=== PATIENT | female | born 1950 | race Caucasian/White ===

== ENCOUNTER → 2016-05-04 18:29 | Outpatient (CLI) | payer MEDICARE | END | disposition home or self-care (01) | LOC: D.LABREF 18:29 | DX: R60.0 Localized edema (principal) ==

== ENCOUNTER → 2016-07-19 20:22 | Outpatient (CLI) | payer MEDICARE | END | disposition home or self-care (01) | LOC: D.LABREF 20:22 | DX: E83.52 Hypercalcemia (principal) ==

== ENCOUNTER → 2016-10-12 15:12 | Outpatient (CLI) | payer MEDICARE | END | disposition home or self-care (01) | LOC: D.LABREF 15:12 | DX: Z13.9 Encounter for screening, unspecified (principal) ==

== ENCOUNTER 2017-08-10 10:18 | Inpatient (IN) | payer OTHER ==
[~2017-08-10] VITALS: Ht 162.6 cm; Wt 120.1 kg
--- NOTE | ~2017-08-10 | EC ---
PATIENT:ALESSANDRA GLASGOW DATE OF SERVICE: 08/10/17 SEX: F MEDICAL RECORD: [id number] DATE OF : 46 LOCATION:D.M2 D.211 AGE OF PATIENT: 67 ADMISSION DATE: 08/10/17 REFERRING PHYSICIAN: INTERPRETING PHYSICIAN: JOHANNA OCASIO MD ECHOCARDIOGRAM REPORT ECHO CHARGES 4 ECHO COMPLETE Date: 08/10 CLINICAL DIAGNOSIS: A-FIB ECHOCARDIOGRAPHIC MEASUREMENTS (adult normal given) AC root (d.<3.7cm) 2.5 cm LV Septum d (<1.2 cm> 1.4 cm Valve Excursion 1.5 cm LV Septum (systole) 2.1 cm Left Atria (s.<4.0cm> 4.7 cm LVPW d(<1.2cm) 1.3 cm RV (d.<2.3cm) 3.2 cm LVPW (sytole) 1.8 cm LV diastole(<5.6CM) 5.8 cm MV E-F(>70mm/sec) cm LV systole 4.1 cm LVOT Diameter 2.1 cm MV exc.(>10mm) cm Est.ejection fraction (50-75%) % DOPPLER: LVIT cm/sec A cm/sec E 102 cm/sec LA cm/sec RVSP mmHg LVOT 97.0 cm/sec AOP1/2T m/s Asc. Ao 158 cm/sec RVOT cm/sec RA cm/sec PA cm/sec AV Gradient Peak 10.0 mmHg AV Mean 4.6 mmHg AV Area 2.3 cm MV Gradient Peak 6.1 mmHg MV Mean 1.9 mmHg MV Area cm COMMENTS: Housing Counselor: Tate SANON EL [place] Lie Detector Operator: 1 Dr. Ocasio TAPE# PACS Pericardial Effusion N DATE OF SERVICE: 08/10/2017 FINDINGS: 1. Left ventricular chamber size is within normal limits. Left ventricular systolic function is normal. Overall ejection fraction estimated at 55%. 2. Left atrium is enlarged at 4.7 cm. Right atrium and right ventricular chamber sizes are within normal limits. 3. Valvular structures have normal structure and motion. 4. Doppler interrogation reveals no significant valvular insufficiency or stenosis. ECHOCARDIOGRAM REPORT [id number] ALESSANDRA GLASGOW 5. There is a small pericardial effusion present. This is not at all hemodynamically significant. 6. No evidence of left ventricular thrombus. TRANSINT:[id number] Voice Confirmation ID: [id number] DOCUMENT ID: [id number] JOHANNA OCASIO MD at 1848 CC: [id number] DICTATION DATE: 08/10/17 1251 ORNAMENT STITCHER: 08/10/17 1442 DIS IN 08/12/17 [facility] [address] [id number]
--- NOTE | ~2017-08-10 | CN ---
PATIENT NAME:ALESSANDRA GLASGOW MEDICAL RECORD: [id number] : 46 LOCATION:D. D.2115 ADMIT DATE: 08/10/17 ACCOUNT: [id number] CONSULTING PHYSICIAN: JOHANNA MORALES MD REFERRING PHYSICIAN: ROSS HYLTON DO DATE OF CONSULTATION: 08/10/2017 ADMITTING DIAGNOSES: 1. Atrial fibrillation, unknown duration. 2. Hypertension. HISTORY OF PRESENT ILLNESS: Ms. Glasgow presents to Dr. Hylton's office for noncardiac related care. She on auscultation was found to have an irregular heartbeat. EKG revealed she is in atrial fibrillation. She does not at all have any symptomatology, did not have any idea she was in the atrial fibrillation. She has no cardiac history. PHYSICAL EXAMINATION: GENERAL APPEARANCE: Well-nourished, well-developed, appears stated age. Level of distress, comfortable. PSYCHIATRIC: Mental status, alert, normal affect. Orientation, oriented to time, place and person. EYES: Lids and conjunctiva, noninjected. No discharge, no pallor. ENT: Lips, teeth, gums, normal dentition. Oropharynx, no cyanosis, no pallor. NECK: Carotid arteries, bilateral normal upstroke, no bruits, no thrills. JUGULAR VEINS: No jugular venous pressure or distention. CERVICAL LYMPH NODES: Nontender, nonenlarged. THYROID: Not enlarged. Nontender. No nodules. LUNGS: Respiratory effort, unlabored. CHEST: Normal curvature. No thoracic deformity. No chest wall tenderness. Percussion, resonant. Auscultation, clear. No wheezes, no rales, no rhonchi. CARDIOVASCULAR: Precordial exam, nondisplaced. No heaves or pericardial thrills. Rate and rhythm, regular. Heart sounds, normal S1, normal S2. No S3, no gallop, no rub. Systolic murmur, not heard. Diastolic murmur, not heard. EXTREMITIES: No cyanosis, no edema. Peripheral pulses, full and equal in all extremities, except as noted. No bruits appreciated. ABDOMEN: Soft, nondistended. Normal aorta. No bruit. Nontender. No masses. Liver, nontender, no hepatomegaly. Spleen, nontender, no splenomegaly. MUSCULOSKELETAL: No joint tenderness. No joint swelling. No erythema. NEUROLOGICAL: Normal gait, normal strength, normal tone. SKIN: Warm and dry. OVERALL IMPRESSION: Atrial fibrillation, unknown duration. We will start her on Xarelto as well as sotalol for rate control. Get an echocardiogram. Thyroid function studies. Further care depends upon the echo and thyroid function studies. TRANSINT:[id number] Voice Confirmation ID: [id number] DOCUMENT ID: [id number] CONSULT REPORT [id number] ALESSANDRA GLASGOW JEFFREY MD at 1848 CC: [id number] DICTATION DATE: 08/10/17 1246 ASSISTANCE SPECIALIST: 08/10/17 1445 DIS IN 08/12/17 [facility] [address] [place] [address]
[2017-08-10] MEDS ORDERED: FLUTICASONE PRO16 GM NASAL (10:44)
[2017-08-10] MEDS ORDERED: SYNTHROID88 MCG PO (10:45)
[2017-08-10] MEDS ORDERED: GLUCOPHAGE1000 MG PO (10:46)
[2017-08-10] MEDS ORDERED: LOTREL 5/20 MG1 CAP (10:47)
[2017-08-10] MEDS ORDERED: VITAMIN D250000 UNIT PO (10:48)
[2017-08-10 10:53] VITALS: BP 123/86; BMI 43.7
[2017-08-10 11:07] LABS: BASOPHILS 0.3 % (0-2); EOSINOPHILS 0.7 % (0-7); HEMATOCRIT 40.2 % (36.0-48.0); HEMOGLOBIN 12.7 g/dL (12-16); IMMATURE GRANULOCYTES 0.2 % (0-5); LYMPHOCYTES 18.2 % (15-50); MCHC 31.6 g/dL (31.0-37.0); MCV 85.5 fL (80.0-100.0); MEAN PLATELET VOLUME 9.2 fL (7.4-10.4); MONOCYTES 4.8 % (2-11); NEUTROPHILS 75.8 % (40-80); PLATELET COUNT 303 10x3/uL (130-400); RDW 15.3 % (11.5-14.5); WBC 8.7 10x3/uL (4.8-10.8)
[2017-08-10 11:30] LABS: ALBUMIN 3.6 g/dL (3.4-5.0); ANION GAP 12.4 mmol/L (8-16); BILIRUBIN - TOTAL 0.4 mg/dL (0.2-1.3); CALCIUM 10.1 mg/dL (8.5-10.1); CARBON DIOXIDE 27.4 mmol/L (21.0-32.0); CREATININE - SERUM 0.9 mg/dL (0.6-1.3); POTASSIUM - SERUM 3.8 mmol/L (3.5-5.1); PROTEIN - SERUM 7.4 g/dL (6.4-8.2)
[2017-08-10 11:36] LABS: MAGNESIUM - SERUM 1.8 mg/dL (1.8-2.4); THYROID STIMULATING HORMONE 2.41 uIU/mL (0.36-3.74)
[2017-08-10 13:25] LABS: T4 THYROXINE 13.8 ug/dL (4.7-13.3); THYROID STIMULATING HORMONE 2.38 uIU/mL (0.36-3.74)
[2017-08-10 14:29] VITALS: BP 128/86
[2017-08-10 16:21] VITALS: BP 130/80
[2017-08-10 19:00] VITALS: BP 120/71
[2017-08-11 00:22] VITALS: BP 116/65
[2017-08-11 04:00] VITALS: BP 123/66
[2017-08-11 05:30] LABS: BASOPHILS 0.3 % (0-2); EOSINOPHILS 1.7 % (0-7); HEMATOCRIT 36.5 % (36.0-48.0); HEMOGLOBIN 11.4 g/dL (12-16); IMMATURE GRANULOCYTES 0.3 % (0-5); LYMPHOCYTES 31.5 % (15-50); MCH 26.8 pg (26.0-34.0); MCHC 31.2 g/dL (31.0-37.0); MCV 85.7 fL (80.0-100.0); MEAN PLATELET VOLUME 9.6 fL (7.4-10.4); MONOCYTES 7.1 % (2-11); NEUTROPHILS 59.1 % (40-80); PLATELET COUNT 296 10x3/uL (130-400); RBC 4.26 10x6/uL (4.00-5.40); RDW 15.5 % (11.5-14.5); WBC 6.6 10x3/uL (4.8-10.8)
[2017-08-11 05:54] LABS: ALBUMIN 2.9 g/dL (3.4-5.0); ALKALINE PHOSPHATASE 55 U/L (46-116); ALT (SGPT) 37 U/L (10-68); BILIRUBIN - TOTAL 0.32 mg/dL (0.2-1.3); CALC OSMOLALITY 281 mosm/kg (275-300); CALCIUM 8.6 mg/dL (8.5-10.1); CARBON DIOXIDE 27.5 mmol/L (21.0-32.0); CHLORIDE - SERUM 103 mmol/L (98-107); CREATININE - SERUM 0.7 mg/dL (0.6-1.3); GLUCOSE 130 mg/dL (74-106); POTASSIUM - SERUM 3.5 mmol/L (3.5-5.1); PROTEIN - SERUM 6.3 g/dL (6.4-8.2); SODIUM 140 mmol/L (136-145); UREA NITROGEN 14 mg/dL (7-18); eGFR NON AFRICAN AMERICAN 88 mL/min (90-120)
[2017-08-11 08:13] VITALS: BP 136/89
[2017-08-11 10:41] VITALS: Ht 162.6 cm; Wt 120.1 kg
[2017-08-11 12:51] VITALS: BP 139/77
[2017-08-11 17:07] VITALS: BP 130/76
[2017-08-11 20:00] VITALS: BP 131/68
[2017-08-12] VITALS: BP 123/62
[2017-08-12 04:00] VITALS: BP 117/67
[2017-08-12 05:42] LABS: BASOPHILS 0.3 % (0-2); HEMATOCRIT 35.4 % (36.0-48.0); IMMATURE GRANULOCYTES 0.3 % (0-5); LYMPHOCYTES 30.8 % (15-50); MCH 26.7 pg (26.0-34.0); MCHC 31.1 g/dL (31.0-37.0); MCV 85.9 fL (80.0-100.0); MEAN PLATELET VOLUME 9.2 fL (7.4-10.4); MONOCYTES 6.2 % (2-11); NEUTROPHILS 60.4 % (40-80); PLATELET COUNT 252 10x3/uL (130-400); RBC 4.12 10x6/uL (4.00-5.40); RDW 15.4 % (11.5-14.5); WBC 6.1 10x3/uL (4.8-10.8)
[2017-08-12 06:04] LABS: ALBUMIN 2.9 g/dL (3.4-5.0); ALKALINE PHOSPHATASE 58 U/L (46-116); ALT (SGPT) 41 U/L (10-68); BILIRUBIN - TOTAL 0.22 mg/dL (0.2-1.3); CALC OSMOLALITY 282 mosm/kg (275-300); CALCIUM 8.5 mg/dL (8.5-10.1); CARBON DIOXIDE 27.5 mmol/L (21.0-32.0); CHLORIDE - SERUM 106 mmol/L (98-107); CREATININE - SERUM 0.7 mg/dL (0.6-1.3); GLUCOSE 140 mg/dL (74-106); POTASSIUM - SERUM 3.9 mmol/L (3.5-5.1); PROTEIN - SERUM 6.4 g/dL (6.4-8.2); SODIUM 141 mmol/L (136-145); UREA NITROGEN 13 mg/dL (7-18); eGFR NON AFRICAN AMERICAN 88 mL/min (90-120)
[2017-08-12 09:09] VITALS: BP 148/71
[2017-08-12 11:53] VITALS: BP 144/81
[2017-08-12] MEDS ORDERED: BETAPACE 80 MG80 MG PO (13:18)
[2017-08-12] MEDS ORDERED: XARELTO20 MG PO (13:21)
== END 2017-08-12 16:10 | disposition home or self-care (01) | DRG 310 ==
LOC: D.M2 10:18 → D.SDCHOLD 08-11 10:05 → D.M2 08-11 10:05
PROVIDERS: Family Medicine; Internal Medicine Interventional Cardiology
DX: I48.91 Unspecified atrial fibrillation (principal); Z79.01 Long term (current) use of anticoagulants; I10 Essential (primary) hypertension; E03.9 Hypothyroidism, unspecified; E11.9 Type 2 diabetes mellitus without complications

== ENCOUNTER → 2018-06-19 09:05 | Outpatient (CLI) | payer OTHER ==
[2017-08-11 10:41] VITALS: BMI 43.4
[~2018-06-19 09:05] MED LIST: BETAPACE 80 MG80 MG PO; FLUTICASONE PRO16 GM NASAL; GLUCOPHAGE1000 MG PO; LOTREL 5/20 MG1 CAP; SYNTHROID88 MCG PO; VITAMIN D250000 UNIT PO; XARELTO20 MG PO
== END | disposition home or self-care (01) ==
LOC: D.CT 09:05
PROVIDERS: ATTEND Family Medicine
DX: N93.9 Abnormal uterine and vaginal bleeding, unspecified (principal)

== ENCOUNTER 2018-07-24 06:35 | Day surgery (SDC) | payer OTHER ==
[2018-07-21 12:35] LABS: BASOPHILS 0.3 % (0-2); EOSINOPHILS 1.5 % (0-7); HEMATOCRIT 39.7 % (36.0-48.0); HEMOGLOBIN 12.6 g/dL (12-16); IMMATURE GRANULOCYTES 0.3 % (0-5); LYMPHOCYTES 25.2 % (15-50); MCHC 31.7 g/dL (31.0-37.0); MCV 81.9 fL (80.0-100.0); MEAN PLATELET VOLUME 9.2 fL (7.4-10.4); MONOCYTES 4.7 % (2-11); PLATELET COUNT 291 10x3/uL (130-400); RBC 4.85 10x6/uL (4.00-5.40); RDW 16.1 % (11.5-14.5); WBC 7.9 10x3/uL (4.8-10.8)
[2018-07-21 12:37] LABS: CALC OSMOLALITY 286 mosm/kg (275-300); CARBON DIOXIDE 31.3 mmol/L (21.0-32.0); CHLORIDE - SERUM 105 mmol/L (98-107); CREATININE - SERUM 0.8 mg/dL (0.6-1.3); GLUCOSE 119 mg/dL (74-106); SODIUM 143 mmol/L (136-145); UREA NITROGEN 15 mg/dL (7-18); eGFR NON AFRICAN AMERICAN 75 mL/min (90-120)
[~2018-07-24] VITALS: Ht 162.6 cm; Wt 121.1 kg
[~2018-07-24 06:35] MED LIST changes: +LOTREL 10-40 M1 EACH PO; +VITAMIN D5000 UNIT PO
[2018-07-24 06:59] VITALS: BP 117/44; Ht 162.6 cm; Wt 121.1 kg
[2018-07-24 08:06] LABS: APPEARANCE HAZY (CLEAR); COLOR YELLOW (YELLOW); GLUCOSE NEGATIVE (NEGATIVE); NITRITE NEGATIVE (NEGATIVE); PROTEIN 1+ mg/dL (NEGATIVE)
[2018-07-24 08:07] LABS: BILIRUBIN NEGATIVE (NEGATIVE); KETONE NEGATIVE (NEGATIVE); UROBILINOGEN NORMAL (NORMAL)
[2018-07-24 08:08] LABS: BACTERIA FEW /hpf (NONE SEEN); EPITHELIAL CELLS 0-5 /hpf (0-5); RED CELLS - URINE NONE SEEN /hpf (0-5)
--- NOTE | 2018-07-24 11:01 | NUR ---
1053 DR. ATKINS PAGED TO INQUIRE WHEN PT IS TO RESUME XARELTO.
--- NOTE | 2018-07-24 11:43 | NUR ---
[address] ATKINS BY PHONE TO CLARIFY WHEN TO RESUME XARELTO, WHICH IS TOMORROW. PT INFORMED.
--- NOTE | 2018-07-26 13:09 | OP ---
PATIENT NAME: ALESSANDRA GLASGOW MEDICAL RECORD: [id number] :46 LOCATION:D.[facility] ADMISSION DATE: SURGEON: JIM ATKINS MD DATE OF OPERATION: 07/24/2018 PREOPERATIVE DIAGNOSES: 1. Postmenopausal bleeding. 2. Cervical mass. POSTOPERATIVE DIAGNOSES: 1. Postmenopausal bleeding. 2. Cervical mass. PROCEDURE: 1. Removal of cervical mass. 2. Hysteroscopy. 3. Curettage. SURGEON: Jim Atkins MD ANESTHESIOLOGIST: Dr. King MANAGER MANAGED BACKUP SERVICES: Leoncio Jean-Baptiste. ANESTHETIC: General. FINDINGS: Uterine vault is atrophic with evidence of scarring. A polypoid mass extending beyond the external cervical os with approximately 1 to 1.5 cm with broad pedicle. Vaginal vault unremarkable. SPECIMEN REMOVED 1. Cervical mass. 2. Endometrial curettings. SPECIMEN DISPOSITION: All specimens to pathology. ESTIMATED BLOOD LOSS: Less than or equal to 75 cc. FLUIDS: 900 cc of lactated Ringer's. URINE OUTPUT: Clear and sufficient catheterization at the close of the procedure. COMPLICATIONS: None. DRAINS: None. INDICATIONS: The patient is a 68-year-old female with history of postmenopausal bleeding. The patient was found to have an IUD, which was placed in the 70s removed in the clinic. Her ultrasound shows a thickened endometrial stripe. Polypoid mass identified arising from the cervical canal on assessment in the clinic. The patient is consented for hysteroscopy, D&C and removal of cervical mass and any indicated procedures. DESCRIPTION OF PROCEDURE: After informed consent was assured, the patient was OPERATIVE REPORT [id number] ALESSANDRA GLASGOW taken to the operating room where anesthetic was obtained. The patient was placed in stirrups and prepped and draped. With operative speculum in the vagina, the cervix was visualized. The cervix was grasped with a single tooth tenaculum. The polypoid mass was grasped and with a broad base, a LEEP wire was used at 75 nicolas setting to remove the mass and pedicle. Hysteroscopy with the above findings. A #3 curette was used to obtain good cry throughout all quadrants of the uterus. Specimen sent to pathology. The pedicle and the cervix was inspected and some bleeding noted from where the polypoid mass was removed. Bovie cautery was now used to obtain hemostasis here. Sponge, lap, needle counts were correct times 2. The patient was awakened and went to recovery room in stable condition. TRANSINT:[id number] Voice Confirmation ID: [id number] DOCUMENT ID: [id number] JIM ATKINS MD at 1309 CC: [id number] DICTATION DATE: 07/24/18 1008 SCIENTIFIC SPECIALIST: 07/24/18 1103 [facility] 07/24/[address] [place] [id number] [place] [id number]
== END 2018-07-24 12:10 | disposition home or self-care (01) ==
LOC: D.OPS 06:35 → D.PAN 09:30 → D.OPS 09:30
PROVIDERS: Anesthesiology; ATTEND Obstetrics & Gynecology
DX: N95.0 Postmenopausal bleeding (principal); D39.0 Neoplasm of uncertain behavior of uterus

== ENCOUNTER 2018-08-14 05:17 | Inpatient (IN) | payer OTHER ==
[2018-08-11 14:15] LABS: BASOPHILS 0.6 % (0-2); EOSINOPHILS 1.8 % (0-7); HEMATOCRIT 38.9 % (36.0-48.0); HEMOGLOBIN 12.1 g/dL (12-16); IMMATURE GRANULOCYTES 0.4 % (0-5); LYMPHOCYTES 26.2 % (15-50); MCH 25.7 pg (26.0-34.0); MCHC 31.1 g/dL (31.0-37.0); MCV 82.6 fL (80.0-100.0); MEAN PLATELET VOLUME 9.3 fL (7.4-10.4); MONOCYTES 6.3 % (2-11); NEUTROPHILS 64.7 % (40-80); RBC 4.71 10x6/uL (4.00-5.40); RDW 15.9 % (11.5-14.5)
[2018-08-11 14:16] LABS: PLATELET COUNT 350 10x3/uL (130-400)
[2018-08-11 14:27] LABS: CALCIUM 9.4 mg/dL (8.5-10.1); CARBON DIOXIDE 27.3 mmol/L (21.0-32.0); CREATININE - SERUM 0.9 mg/dL (0.6-1.3); POTASSIUM - SERUM 4.3 mmol/L (3.5-5.1)
[~2018-08-14] VITALS: Ht 162.6 cm; Wt 120.2 kg
[2018-08-14] VITALS (26 sets, daily range): BP systolic 104–139; BP diastolic 51–75; BMI 45.6
[2018-08-14] MEDS ORDERED: VALIUM 2 MG TAB2 MG PO (06:22)
--- NOTE | 2018-08-14 10:26 | NUR ---
OPA IN AIRWAY ON ADMIT
--- NOTE | 2018-08-14 11:37 | OP ---
PATIENT NAME: ALESSANDRA GLASGOW MEDICAL RECORD: [id number] :46 [facility] DATE: SURGEON: ARVIND ATKINS MD DATE OF OPERATION: 08/14/2018 PREOPERATIVE DIAGNOSES: 1. Morbid obesity. 2. Complex hyperplasia with atypia. 3. Postmenopausal bleeding. POSTOPERATIVE DIAGNOSES: 1. Morbid obesity. 2. Complex hyperplasia with atypia. 3. Postmenopausal bleeding. 4. Pelvic adhesive disease. PROCEDURES: 1. Diagnostic laparoscopy. 2. Exploratory laparotomy. 3. Lysis of adhesions. 4. Total abdominal hysterectomy. 5. Bilateral salpingo-oophorectomy. SURGEON: Arvind Atkins MD VEGETABLE LOADER: Alen Martínez MD HORTICULTURAL AGENT: ZAID Chopra ANESTHESIOLOGIST: Dr. King. ANESTHETIC: General. FINDINGS: Uterus is unremarkable. The left tube and ovary were adhesed to the bowel. The right ovary is unremarkable. Right tube is not present. What was visualized of the rest of the pelvic anatomy is unremarkable. SPECIMENS REMOVED: Uterus with cervix and bilateral ovaries with left tube. SPECIMEN DISPOSITION: All specimens to Pathology. ESTIMATED BLOOD LOSS: Less than or equal to 100 cc. FLUIDS: 2000 cc of lactated Ringer's. URINE OUTPUT: 150 cc of clear urine. COMPLICATIONS: None. DRAINS: Mix to gravity. INDICATIONS: The patient is a 68-year-old female with a history of postmenopausal bleeding. Workup included D&C with evidence of complex hyperplasia with atypia. The patient is consented for laparoscopically assisted vaginal hysterectomy with bilateral salpingo-oophorectomy and any indicated OPERATIVE REPORT [id number] ALESSANDRA GLASGOW procedure. DESCRIPTION OF PROCEDURE: After informed consent was assured, the patient was taken to the operating room where anesthesia was obtained. The patient is in [facility] and prepped and draped. Incision was made in the umbilicus to accommodate a 5-mm trocar, which was inserted without difficulty. Accessory ports were now placed in the right and left lower quadrant. The bowel was swept free of the pelvis with the above findings. Due to the adhesive disease and the amount of soft tissue obscuring the adnexa, it was felt prudent to abandon the laparoscopically assisted vaginal hysterectomy and move forward with an abdominal approach. The patient was leveled and all trocars were removed after release of the pneumoperitoneum. An incision was made over a transverse lower abdominal scar. A Pfannenstiel skin incision was used to enter the abdomen. Bowel was packed free and the uterine cornu was grasped with Diamante clamps. The round ligament was elevated and entered on the left hand side. The bladder flap was developed from the left to the midline. Window was made in the posterior leaf of the broad ligament and 2 clamps were passed through this opening. The pedicles were mobilized with scissors and a ales-fkl-ngt stitch applied for hemostasis at the uterine ovarian ligament. Dissection continues of the connective tissue surrounding the left vascular bundle. Once this had been completed, attention was now directed to the right. The right round ligament was elevated and entered. The bladder flap was now fully developed. A window was made in the posterior leaf of the broad ligament and 2 clamps were passed through this opening. The pedicle was mobilized and a izxz-bjh-adi stitch applied at the uterine ovarian ligament for hemostasis. The connective tissue surrounding the right vascular bundle was dissected free. At the level of the internal os, the uterine arteries were clamped with a Mulu clamp and a straight clamp to prevent backbleeding. This pedicle was mobilized with scissors and a Mulu stitch applied for hemostasis. Attention was directed to the left side where a clamp was applied in like manner. This pedicle was mobilized and a Mulu stitch applied for hemostasis. Using the straight clamps, the cardinal ligaments were now serially clamped, cut and tied until the level of the uterosacral ligaments were reached. With the bladder site dissected safely from the field dissection, the Mulu clamps were used to crossclamp the top of the vagina. Israel scissors removed the uterus from its attachments to the cervix for better visualization during this process. Cervix was now removed from the vagina. All specimens passed off the field. Interrupted hthczl-ne-rgesk stitches were used to reapproximate the cuff in the midline and Mulu stitches were used at the lateral pedicles. Pelvis was irrigated, irrigant removed. Adequate hemostasis was noted. Attention was now directed to the left side where the adhesions were taken down with Metzenbaum scissors. Dense adhesions were also taken down with Bovie cautery. Once the pedicle was mobilized, the ovary and tube was elevated and a Mulu clamp was placed on the infundibulopelvic ligament. A simple stitch and nsrv-qpl-rsz stitch was applied here for hemostasis. Attention was now directed to the right side where the right ovary was elevated. Tube was not present in the adnexa. The infundibulopelvic ligament was now serially compressed, coagulated, and with a Gyrus coagulation cutter. After removal of the ovary, the site was inspected. Both right and left infundibulopelvic ligaments were hemostatic. Gelfoam was placed over the right ovarian vascular pedicle and a Gelfoam was placed across the top of the vaginal cuff. Sponge, lap, and needle counts correct times 2 as the close begins. The fascia was closed with a looped PDS in a running fashion. After securing the stitch, subcutaneous tissues were irrigated, bleeding vessels cauterized, and the skin reapproximated with shante. All port sites were closed with shante as well. Sponge, lap, and OPERATIVE REPORT [id number] ALESSANDRA GLASGOW needle counts correct times 3 at the close of this surgery. TRANSINT:[id number] Voice Confirmation ID: [id number] DOCUMENT ID: [id number] ARVIND ATKINS MD at 1137 CC: [id number] DICTATION DATE: 08/14/18 1000 BOARD OF DIRECTORS: 08/14/[address] [facility] [address] [place] [address]
--- NOTE | 2018-08-14 11:39 | NUR ---
to room 1276 via bed from . received per giovanna le rn. vs done.
--- NOTE | 2018-08-14 11:42 | NUR ---
o2 sat 89- encouraged deep breathing.
--- NOTE | 2018-08-14 11:45 | NUR ---
co some nausea. tilted to rt side. no emesis.
--- NOTE | 2018-08-14 11:46 | NUR ---
drowsy- verbal responses appro to questions. o2 at 4l/nc per anesthesia. iv in rt hand- 20g cath- up lr at 125cc/hr. noted lap incisions x3 with bandaides-cd&i. abd incision with dressing noted- cd&i. scd connected to pump.
--- NOTE | 2018-08-14 13:04 | NUR ---
TORADOL GIVEN. STATES THAT PAIN IS BETTER BUT "FEELS LIKE I NEED TO PEE ALL THE TIME"
--- NOTE | 2018-08-14 13:16 | NUR ---
BLADDER SCAN USED PER THIS NURSE AND Gurvinder MANDUJANO RN- NO URINE NOTED WITH SCANNER.
--- NOTE | 2018-08-14 13:20 | NUR ---
REFUSES LIQUIDS AT THIS TIME.
--- NOTE | 2018-08-14 13:42 | NUR ---
report of pt 02 sats and being on 4l/nc, report of urine output - new orders received.
--- NOTE | 2018-08-14 14:10 | NUR ---
LR BOLUS OF 1000CC STARTED.
--- NOTE | 2018-08-14 14:29 | NUR ---
BATTALION CHIEF DILAUDID SETUP - 0.3 MG Q6MIN PRN. PT INSTRUCTED ON USE. PT RATES HER PAIN A 1 AT THIS TIME. USED INCENTIVE DIANE. POSITION CHANGED FROM LT TO RT TILT.
--- NOTE | 2018-08-14 14:37 | NUR ---
NEW BAG LR HUNG TO COMPLETE BOLUS.
--- NOTE | 2018-08-14 15:12 | NUR ---
AWAKENED WHEN ENTERED ROOM. PT DOZING BUT AWAKENS EASILY. VERBAL REWSPONSES APPRO TO QUESTIONS. STATES THAT SHE HAS NOT USED PORTFOLIO ADMINISTRATOR AGAIN BUT IS IN HER HAND. STATES PAIN IS A 0 ON SCALE OF 0-10.
--- NOTE | 2018-08-14 15:20 | NUR ---
NOTED BLOOD ON GOWN- UNDER DRESSING AND ON CHUX. LChuck MANDUJANO TO ROOM. DR MCCARTNEY CALLED TO UNIT. PT IS AWAKE - NO CO PAIN OR DISCOMFORT. HR 60 BP 115/61. O2 SAT 95.
--- NOTE | 2018-08-14 15:27 | NUR ---
DR MCCARTNEY IN ROOM.
--- NOTE | 2018-08-14 15:35 | NUR ---
THIS RN CALLS CT TO REQUEST STAT CT NOW. INFORMED THAT CT CAN'T BE DONE UNTIL LAB RESULTS ARE IN. LAB CALLED PER THIS RN. SPOKE W/CARL. SHE REPOTS NO PHLEBO IN LAB AT THIS TIME. SHE WILL FIND TECH TO COME STAT TO [facility] RM [id number].
--- NOTE | 2018-08-14 15:40 | NUR ---
BIODIESEL PLANT OPERATIONS ENGINEER TO ROOM AT THIS TIME TO OBTAIN BLOOD SPECIMEN. THIS RN CONTACTS PT'S SON AT THIS TIME PER PT'S REQUEST TO COME BE WITH HER. MR GLASGOW STATES "TELL HER I HAVE TO TIE SOME THING SUP AND I WILL COME UP THERE." PT INFORMED AND DESIRES HER SISTER TO BE CALLED ALSO.
--- NOTE | 2018-08-14 15:43 | NUR ---
THIS RN ATTEMPTS TO CALL PT'S SISTER AT THIS TIME. LINE IS CURRENTLY BUSY. WILL CONTINUE TO ATTEMPT TO REACH PT'S SISTER.
--- NOTE | 2018-08-14 15:44 | NUR ---
PT'S SISTER REACHED PER THISR N. SISTER WILL BE ENROUTE TO L&D.
--- NOTE | 2018-08-14 15:45 | NUR ---
LAB IN ROOM -TRYING TO DRAW BLOOD FOR STAT CBC AND T AND C. DIFFICULTY FINDING VEIN. DIFFICULTY FINDING VEIN FOR 2ND IV PER Gurvinder MANDUJANO RN.
[2018-08-14 15:54] LABS: HEMOGLOBIN 11.3 g/dL (12-16); MCH 25.5 pg (26.0-34.0); MCHC 30.5 g/dL (31.0-37.0); MCV 83.5 fL (80.0-100.0); MEAN PLATELET VOLUME 9.5 fL (7.4-10.4); PLATELET COUNT 297 10x3/uL (130-400); RBC 4.43 10x6/uL (4.00-5.40); RDW 15.8 % (11.5-14.5)
--- NOTE | 2018-08-14 15:54 | NUR ---
CONT TO ATTEMPT TO FIND 2ND IV SITE.
--- NOTE | 2018-08-14 16:00 | NUR ---
vascular access nurse in room attempting to start 2nd iv line. dr young had called unit for update- returned dr johnson call.
--- NOTE | 2018-08-14 16:10 | NUR ---
vascular access nurse cannot find vein. notifed dr martinez of need for iv- states will be right here.
--- NOTE | 2018-08-14 16:10 | NUR ---
shaylee blanc swage tender in room with us for vascular access. dr martinez comes to room.
--- NOTE | 2018-08-14 16:28 | NUR ---
18g iv cath placed into rt acs per shaylee blanc crna. blood drawn for creatinine for lab and taken to lab. lab states that they have 4 units prbc setup for pt if needed already.
[2018-08-14 16:40] LABS: EOSINOPHILS 1 % (0-7); LYMPHOCYTES 7 % (15-50); NEUTROPHILS 92 % (40-80); PLATELET ESTIMATE NORMAL
--- NOTE | 2018-08-14 16:55 | NUR ---
again called ct with results of bun. states they will be here to transport pt to ct scan.
--- NOTE | 2018-08-14 17:05 | NUR ---
informed dr young that pt is going to ct scan.
--- NOTE | 2018-08-14 17:15 | NUR ---
pt to ct scan via bed.
--- NOTE | 2018-08-14 17:23 | NUR ---
vascular nurse goes for us to assist in finding iv access.
--- NOTE | 2018-08-14 17:30 | NUR ---
notified ct of return of creatinine and they states they need a bun also- notified lab.
--- NOTE | 2018-08-14 17:40 | NUR ---
RETURNS TO ROOM VIA BED.
--- NOTE | 2018-08-14 17:52 | NUR ---
phoned radiology and they states that radiologist is very busy and he will call dr young with the results.
--- NOTE | 2018-08-14 17:53 | NUR ---
report to dr young of above.
--- NOTE | 2018-08-14 18:02 | NUR ---
DR MCCARTNEY IN ROOM. TALKS WITH PT AND FAMILY.
--- NOTE | 2018-08-14 18:08 | NUR ---
LIDOCAINE USED PER DR MCCARTNEY.
--- NOTE | 2018-08-14 18:25 | NUR ---
DR MCCARTNEY FINISHES SUTURING INCISION POST SOME CLEVEL[place] REMOVED- CLEANSED WITH STERILE WATER AND DERMABOND USED. DERMABOND TP DRY THEN WILL PLACE DRESSING.
--- NOTE | 2018-08-14 19:01 | NUR ---
report to pm shift.
--- NOTE | 2018-08-14 19:30 | NUR ---
SHIFT ASSESSMENT COMPLETED, PT ALERT AND ORIENTED X4, RESPONDS APPROPRIATELY, O2 AT 4L/MIN AT 97%, ATTEMPTED TO WEAN TO 2L/MIN WITH DROP IN O2 SAT TO 92%, INCREASED UP TO 3L/MIN AND SUSTAINING O2 SAT AT 97-98%. PT TCDB, INCENTIVE SPIROMETRY UP TO 1500ML DEMONSTRATED WHILE THIS RN AT BS WITH ENCOURAGEMENT, ASSISTED WITH POSITIONING UP IN BED, PT USING CUSTOMER SERVICE ADMINISTRATOR FOR PAIN CONTROL WITHOUT DIFFICULTY, ABD DRESSING APPLIED TO TRANSVERSE ABD INCISION THAT IS CLEAN AND DRY WITHOUT EVIDENCE OF FURTHER BLEEDING, [place] X4 TO RIGHT SIDE INCISION AND DERMABOND IN PLACE TO MID AND LEFT PORTIONS. NO REDNESS, WARMTH AT SITE NOTED. BATES/PERICARE PROVIDED, BATES WITH 200ML URINE IN COLLECTION CHAMBER EMPTIED AND NOTED. PO FLUIDS ENCOURAGED, CUP OF ICE WATER PROVIDED. ICE PACK OVERLAY TO ABD INCISION IN PLACE NOW. CALL LIGHT IN EASY REACH WELL CUSTOMER SERVICE ADMINISTRATOR BUTTON. CONTINUE TO MONITOR.
--- NOTE | 2018-08-14 19:35 | NUR ---
WHILE THIS RN AT BEDSIDE PROVIDING ADDITIONAL BLANKET TO PT PER REQUEST, NOTED HR TEMPORARILY INCREASE UP TO 120-160 ML THEN RETURN TO BASELINE IN MID-60S. REVIEWED PT MEDS, PT STATES NORMALLY TAKES BETAPACE (SOTALOL) TWICE DAILY. WILL CONTACT MD FOR FURTHER ORDERS.
--- NOTE | 2018-08-14 19:40 | NUR ---
MD CONTACTED RE: RESTART OF PT HOME MEDICATIONS, ORDERS FOR BETAPACE 80 MG PO BID, STATES REST CAN BE REVIEWED BY DR ATKINS TOMORROW. RELAYED TO PT WHO STATES UNDERSTANDING AND AGREEABLE TO PLAN OF CARE AT THIS TIME.
--- NOTE | 2018-08-14 20:00 | NUR ---
PT TURNED TO RIGHT LATERAL TILT, PROPPED WITH PILLOWS, ENCOURAGED TCDB, PT DEMONSTRATES. CALL LIGHT/SUPERVISOR PUMPING STATION BUTTON WITHIN EASY REACH, PT QUESTIONS ANSWERED. CONTINUE TO MONITOR.
--- NOTE | 2018-08-14 20:22 | NUR ---
PT USING CALL LIGHT TO ASK ABOUT EQUIPMENT ALARM, NOTED SCD NOT FUNCTIONING CORRECTLY. TROUBLESHOOTING COMPLETED, SCD REAPPLIED TO B LE AND NOW FUNCTIONING. ENCOURAGED PT TCBD WHILE AWAKE, WATER OFFERED BUT REFUSED. CALL LIGHT AND CONTROL OPERATOR FLOW COAT BUTTON WITHIN EASY REACH, PT DENIES PAIN AT THIS TIME.
--- NOTE | 2018-08-14 21:51 | NUR ---
PT RATES PAIN A 1/10 ON NUMERIC PAIN SCALE, TORADOL 15MG IV AND ACETOMINOPHEN 1000MG PO GIVEN WITH SIPS WATER, PO INTAKE ENCOURAGED. SOTALOL 80MG PO TAB ALSO GIVEN UPON RECEIPT FROM PHARMACY AFTER SECOND CALL FROM THIS RN. PT DOES REPORT "MY HEART WAS FLUTTERING A FEW MINUTES AGO BUT IT HAS STOPPED NOW." HR 72 AND REGULAR AT THIS TIME. URINE OUTPUT AT 250ML FOR PAST TWO HOURS. NO ABD BLEEDING NOTED, RESP EVEN AND UNLABORED. CALL LIGHT IN EASY REACH, DIVISION CHIEF BUTTON IN RIGHT HAND. NO DISTRESS NOTED AT THIS TIME. CONTINUE TO MONITOR.
--- NOTE | 2018-08-14 22:58 | NUR ---
ROUNDS COMPLETED, PT ROUSES ON RN ENTRY TO ROOM, RESP EVEN AND UNLABORED, DENIES FURTHER PALPITATIONS ON INQUIRY, SCDS IN PLACE B LE, DENIES C/O PAIN. REPOSITIONED TO PT BACK PER PT REQUEST. TCDB ENCOURAGED, INCENTIVE SPIROMETRY UP TO 1250ML WITH ENCOURAGEMENT. CONTINUE TO MONITOR.
--- NOTE | 2018-08-15 00:44 | NUR ---
ROUNDS COMPLETED, PT RESP EVEN AND UNLABORED, COLOR PINK, SKIN WARM AND DRY, IVF OF LR INFUSING AT 150ML/HR TO RIGHT HAND WITHOUT DIFFICULTY, SITE BENIGN TO INSPECTION, BATES TO GRAVITY DRAINAGE WITH 200ML NOTED IN COLLECTION CHAMBER. CONTINUE TO MONITOR.
--- NOTE | 2018-08-15 01:28 | NUR ---
ROUNDS COMPLETED. IVF-1000ML BAG LACTATED RINGERS HUNG AND INFUSING TO RIGHT HAND PIV AT 150 ML/HR. TCDB COMPLETED, INCENTIVE SPIROMETRY UP TO 1250ML WITH ENCOURAGEMENT, SIPS WATER PROVIDED, CALL LIGHT AND DIVISION SUPERINTENDENT DEVICE BUTTON WITHIN EASY REACH. CONTINUE TO MONITOR.
--- NOTE | 2018-08-15 02:28 | NUR ---
ICE PACK OVERLAY REPLACED, CUP OF ICE WATER PROVIDED, PT ANXIOUS, EMOTIONAL SUPPORT PROVIDED, QUESTIONS ANSWERED, REVIEWED PLAN OF CARE AND RATIONALE. O2 SAT AT 96-97% ON 2L/MIN PER NC. CONTINUE TO MONITOR.
--- NOTE | 2018-08-15 04:28 | NUR ---
SCHEDULED ACETOMINOPHEN 1000MG PO AND TORADOL 15MG IVP GIVEN PER MD ORDERS, PT C/O PAIN 1/10 ON NUMERIC PAIN SCALE. ATTEMPTED TO LOWER O2 TO 1L/MIN PER NC FROM 2L/MIN WITH DROP IN O2 SAT FROM 96-98% TO 93%, O2 AT 2L/MIN PER NC AT THIS TIME. VSS, AFEBRILE, REPOSITIONED PT TO LEFT TILT/LATERAL POSITION, PROPPED WITH PILLOWS. ABD DRESSING TO LOW TRANSVERSE INCISION REMAINS CDI AT THIS TIME. NAD NOTED. CALL LIGHT AND MOTOR COACH TOUR OPERATOR BUTTON WITHIN EASY REACH OF PT. CONTINUE TO MONITOR.
[2018-08-15 04:32] VITALS: BP 127/61
--- NOTE | 2018-08-15 06:10 | NUR ---
PT ROUNDS COMPLETED, PT TALKATIVE. REVIEWED PLAN OF CARE. BATES EMPTIED. CALL LIGHT IN EASY REACH, NAD NOTED. CONTINUE TO MONITOR.
--- NOTE | 2018-08-15 06:25 | NUR ---
DR ATKINS PHONES UNIT; PT STATUS UPDATE PROVIDED, NO NEW ORDERS RECEIVED AT THIS TIME, STATES WILL ROUND ON PT THIS AM.
[2018-08-15 07:24] VITALS: BP 121/59
--- NOTE | 2018-08-15 07:38 | NUR ---
ASSESSMENT DONE- PT AWAKE AND TALKING. VERBAL RESPONSES APPRO TO QUESTIONS. NO REQUESTS AT THIS TIME. ABD DRESSING CD&I. CLEAR LIQ DIET SERVED.
--- NOTE | 2018-08-15 07:44 | NUR ---
DR ATKINS IN ROOM TALKING WITH PT.
--- NOTE | 2018-08-15 09:10 | NUR ---
O2 DECREASED TO 1L/NC. O2 SAT 95 TO 99%
--- NOTE | 2018-08-15 09:13 | NUR ---
noted area of blood under abd dressing about 1 1/2" long. notified dr kimbrough- orders received to normalize pt but to keep dressing on for 24 hours.
--- NOTE | 2018-08-15 09:29 | NUR ---
iv changed to saline lock- both iv lines flushed with ns.
[2018-08-15 09:44] VITALS: BMI 45.5
--- NOTE | 2018-08-15 10:31 | NUR ---
rings call light- states feels like something is leaking between her legs. nothing visualized. pad placed. place on abd dressing has not increased in size.
[2018-08-15 11:25] VITALS: BP 122/66
--- NOTE | 2018-08-15 11:33 | NUR ---
BATES CATH REMOVED POST BULB DEFLATED WITHOUT INCIDENT. 900CC URINE IN CONTAINER. PT INSTRUCTED TO CALL NURSE WHEN NEEDS TO GET UP.
--- NOTE | 2018-08-15 13:23 | NUR ---
PT STATES HAS BEEN PASSING FLATUS. EATING REG DIET AT THIS TIME. DENIES WANTING PAIN MEDICATION.
--- NOTE | 2018-08-15 13:40 | NUR ---
pt to sitting on side of bed- states does not feel like needs to void yet. ambulated to bathroom. sponge bath done. linens changed. noted larger area of bleeding under abd dressing- not coming out of dressing though. returned to bed.
[2018-08-15 13:56] VITALS: BP 115/55
--- NOTE | 2018-08-15 14:05 | NUR ---
voided 50cc.
--- NOTE | 2018-08-15 14:08 | NUR ---
o2 sat 97 with o2 off at this time.
--- NOTE | 2018-08-15 15:33 | NUR ---
dr kimbrough in room to see pt- check dressing.
--- NOTE | 2018-08-15 16:18 | NUR ---
up to bathroom to void- walking well. voided 100cc urine.
--- NOTE | 2018-08-15 16:30 | NUR ---
pressure dressing applied.
--- NOTE | 2018-08-15 16:37 | NUR ---
bladder scan done- 0 urine reported.
--- NOTE | 2018-08-15 18:23 | NUR ---
up to bathroom- voided 150cc. ambulated in hallway- tolerated well. passing flatus.
[2018-08-15 19:30] VITALS: BP 112/56
--- NOTE | 2018-08-15 19:30 | NUR ---
SHIFT ASSESSMENT COMPLETED. PT AAOX4, TALKATIVE, RESP EVEN AND UNLABORED, COLOR WNL, SKIN WARM AND DRY, LUNGS CTAB, HEART RRR NO MURMURS, PALPITATIONS PER AUSCULTATION, ABD SOFT AND NONTENDER, REPORTS FLATUS, PRESSURE DRESSING NOTED TO LOW TRANSVERSE INCISION WITHOUT VISIBLE DRAINAGE, SURROUNDING ERYTHEMA, OR PAIN. PAIN RATED ZERO AT THIS TIME. MACIEL FREELY, AMBULATORY TO BR, ASSISTED WITH VOID PROVIDED, REPOSITIONED PT IN BED, SCDS APPLIED TO B LE AND FUNCTIONING APPROPRIATELY. VSS, AFEBRILE. BED IN LOW POSITION, CUP OF ICE WATER PROVIDED PER REQUEST. REVIEWED PLAN OF CARE THIS PM, QUESTIONS ANSWERED, PERSONAL ITEMS WITHIN EASY REACH OF PT, BED IN LOW POSITION, CALL LIGHT IN EASY REACH. CONTINUE TO MONITOR.
--- NOTE | 2018-08-15 20:05 | NUR ---
ROUNDS COMPLETED. HS SNACK TRAY PROVIDED. PT AOX4, DENIES NEEDS OR CONCERNS. CONTINUE TO MONITOR.
--- NOTE | 2018-08-15 21:01 | NUR ---
SCHEDULED MEDS PROVIDED PER MD ORDERS. ASSISTED PT OOB TO BR, VOIDS WITHOUT DIFFICULTY, CUP OF ICE WATER PROVIDED, ASSISTED BACK TO BED, POSITIONED TO COMFORT, SIDE RAILS UP X2, BED IN LOW POSITION, BED BRAKES LOCKED. NAD NOTED. CONTINUE TO MONITOR.
[2018-08-15 22:54] VITALS: BP 121/58
--- NOTE | 2018-08-15 22:54 | NUR ---
SCHEDULED MEDS PROVIDED PER MD ORDERS. PT RESTING WITH EYES CLOSED ON ENTRY TO ROOM, ROUSES TO VERBAL STIMULATION, RESP EVEN AND UNLABORED, DENIES PAIN. VSS. AFEBRILE. CALL LIGHT WITHIN EASY REACH, CONTINUE TO MONITOR.
--- NOTE | 2018-08-15 23:30 | NUR ---
CUP OF ICE WATER PROVIDED, RESP EVEN AND UNLABORED, PT TALKATIVE AND PLEASANT, NAD NOTED, NO COMPLAINTS/CONCERNS/NEEDS VOICED AT THIS TIME. CONTINUE TO MONITOR.
--- NOTE | 2018-08-16 01:10 | NUR ---
ROUNDS COMPLETED, PT RESTING WITH HOB ELEVATED AT 45 DEGREES, EYES CLOSED, RESP EVEN AND UNLABORED, CALL LIGHT WITHIN EASY REACH, SCD TO B LE IN PLACE AND FUNCTIONING, NAD NOTED. CONTINUE TO MONITOR.
--- NOTE | 2018-08-16 02:49 | NUR ---
PT ASSISTED OOB TO BR PER PT REQUEST VIA CALL LIGHT. VOIDS WITHOUT DIFFICULTY, MINIMAL ASSISTANCE PROVIDED WITH MESH PANTIES. NO VAGINAL BLEEDING NOTED. LOW ABD PRESSURE DRESSING CDI TO LOW ABDOMEN. ASSISTED PT BACK TO BED AND POSITIONED TO COMFORT. CALL LIGHT IN EASY REACH, PO FLUIDS ENCOURAGED AND PT TOLERATING WELL. CONTINUE TO MONITOR.
--- NOTE | 2018-08-16 02:59 | NUR ---
AFTER ASSISTING PT BACK TO BED, SAW THAT MESH PANTIES HAD BRIGHT RED BLOOD ON THEM. NOTED THEN THAT THE MID PORTION OF THE FOAM TAPE PRESSURE DRESSING TO ABD WAS LOOSENED AND A SATURATED 4X4 PROLAPSING FROM DRESSING. REMOVED DRESSING, REMOVED DIRTY 4X4, NOTED THAT ROUGHLY MID THIRD OF INCISION DEHISCENCE NOTED, NO ACTIVE BLEEDING NOTED. USING ASEPTIC TECHNIQUE APPLIED STERILE 4X4 TO INCISION AND FOAM TAPE DRESSING REAPPLIED TO SITE. PT TOLERATES PROCEDURE. ASKED PT NOT TO GET OOB FOR NOW, WILL CONTACT MD FOR REPORT AND ANY ORDERS. CALL LIGHT IN EASY REACH.
--- NOTE | 2018-08-16 03:03 | NUR ---
DR ATKINS PHONED WITH REPORT OF WOUND DEHISCENCE AND ACTIONS TAKEN. STATES WILL COME IN AM TO MANAGE AND CONTINUE PLAN OF CARE FOR NOW. RELAYED THIS INFORMATION TO PT, QUESTIONS ANSWERED. CALL LIGHT IN EASY REACH. PT STATES UNDERSTANDING. CONTINUE TO MONITOR.
[2018-08-16 03:21] VITALS: BP 112/67
--- NOTE | 2018-08-16 04:37 | NUR ---
PT ROUNDS COMPLETED, SCHEDULED TYLENOL GIVEN TO PT WITH SIPS WATER. CHECKED ABD DRESSING AND NOTED, FOAM DRESSING TAPE REMAINS INTACT TO LOW ABD WITHOUT ANY VISIBLE DRAINAGE NOTED AT THIS TIME. DISCUSSED NEED TO USE BEDPAN FOR VOIDING UNTIL MD EVALUATES. PT STATES UNDERSTANDING AND DOES NOT NEED TO VOID AT THIS TIME. WILL MONITOR. CALL LIGHT IN EASY REACH.
--- NOTE | 2018-08-16 06:30 | NUR ---
PT TO BEDPAN, VOIDED, PERICARE PROVIDED. REPOSITIONED IN BED, NO FURTHER ABD BLEEDING/DRAINAGE NOTED TO FOAM DRESSING. CALL LIGHT IN EASY REACH.
--- NOTE | 2018-08-16 07:12 | NUR ---
REPORT GIVEN TO ONCOMING SHIFT PROVIDED.
--- NOTE | 2018-08-16 07:30 | NUR ---
THIS RN TO BEDSIDE FOR INTRODUCTIONS. PT AA&O X 4. NO C/O PAIN. DENIES NEEDS AT PRESENT. PT CURRENTLY CONSUMING HER BREAKFAST. POC FOR THE DAY DISCUSSED. PT VERBALZIES UNDERSTANDING AND AGREEABLE.
--- NOTE | 2018-08-16 08:00 | NUR ---
pt rings call light requesting to use the bedpan.this rn to bedside. bedpan placed for pt's use. curtain pulled. pt to call when she has voided.
--- NOTE | 2018-08-16 08:15 | NUR ---
pt rings call light. this rn to bedside. pt able to void approx 100ml. pericare done. pt repositions self up in bed. currently denies pain. pt has consumed 100% of breakfast tray. before leaving room, pt assisted w/repositioning for comfort.
[2018-08-16 08:16] VITALS: BP 132/62
--- NOTE | 2018-08-16 09:15 | NUR ---
PT RINGS CALL LIGHT REQUESTING BEDPAN. THIS RN TO ROOM TO PLACE PT ON BEDPAN. PT TO RING CALLLIGHT WHEN SHE HAS FINISHED.
--- NOTE | 2018-08-16 09:21 | NUR ---
PT RINGS CALL LIGHT. THIS RN TO BEDSIDE. PT ABLE TO VOID APPROX 100ML URINE. PERICARE DONE. PT DENIES FURTHER NEEDS.
--- NOTE | 2018-08-16 10:30 | NUR ---
THIS RN TO BEDSIDE TO ADMINISTER SCHEDULED TYLENOL. ONCE SCANNED, REPORT SHOWS THAT DOSE WOULD EXCEED RECOMMENDED DOSE. PT CURRENTLY DENIES PAIN AT PRESENT. DOSE HELD. WHILE AT BEDSIDE, PT REQUEST BEDPAN AGAIN. BEDPAN PROVIDED. PT TO RING WHEN SHE IS DONE. CALL LIGHT AT PT'S SIDE.
--- NOTE | 2018-08-16 11:30 | NUR ---
ROUNDS MADE. PT LYING AWAKE IN BED IN SUPINE POSITION. DENIES PAIN OR NEEDS AT THIS TIME. BED LOW, SIDE RAILS UP X 2. CALL LIGHT AND PHONE AT PT'S SIDE.
--- NOTE | 2018-08-16 11:38 | NUR ---
PT RINGS CALL LIGHT. THIS RN TO BEDSIDE. PT ABLE TO VOID APPROX 100ML. PERICARE DONE. CLEAN PINK PAD AND CHUX PLACED. PT DENIES FURTHER NEEDS. FRESH ICE WATER SERVED IN [facility].
[2018-08-16 12:00] VITALS: BP 120/74
--- NOTE | 2018-08-16 12:11 | NUR ---
PT ON BEDPAN. VOIDS 150 ML OF CLEAR, YELLOW URINE. PERICARE DONE. PT GARLAND WELL.
--- NOTE | 2018-08-16 12:12 | MORECARE ---
CASE MANAGEMENT DISCHARGE SUMMARY PATIENT: ALESSANDRA GLASGOW SHAYNE UNIT: [id number] ADM DATE: 08/16/18 AGE: 68 : 48 SEX: F ROOM/BED: D.[facility]6 AUTHOR: LAURI SHAH PHYSICIAN: REFERRING PHYSICIAN: ARVIND ATKINS MD DATE OF SERVICE: 08/16/18 Discharge Plan Patient Name: ALESSANDRA GLASGOW Facility: [facility]:[place] : 1950 Planned Disposition: Anticipated Discharge Date: 08/17/18 Discharge Date: Expected LOS: 1 Initial Reviewer: [id number] Initial Review Date: 08/16/2018 Generated: 08/16/18 1:11 pm Comments DCP- Discharge Planning Updated by [email or web address]: Dior Torres on 08/16/18 11:[address] Patient Name: ALESSANDRA GLASGOW Admission Status: Elective Accout number: [id number] Admission Date: 08-16-2018 : 1950 Admission Diagnosis: Attending: Arvind Atkins Current LOS: 1 Anticipated DC Date: 08-17-2018 Planned Disposition: Primary Insurance: NOVASYCR Discharge Planning Comments: CM MET WITH PATIENT ABOUT DC PLANNING/NEEDS. STATES WILL NEED HOME HEALTH FOR DRESSING CHANGES AND NURSING. SETH SIGNED FOR [facility]. CM WILL CHECK WITH PHARMACY AND SEE IF LOVENOX IS COVERED. CM WILL FOLLOW AND ASSIST NEEDED. Roller Checker: Dior Torres Patient Name: ALESSANDRA GLASGOW Page [phone] at 1212 All edits/amendments must be made on the electronic document DICTATION DATE: 08/16/[address]: JODIE 08/16/18 1211 RPT#: [id number] DC DATE: STATUS: ADM IN [facility] [address] [place] [address] END OF REPORT
--- NOTE | 2018-08-16 13:45 | NUR ---
wound nurse at bedside at this time.
--- NOTE | 2018-08-16 13:46 | NUR ---
BED ASSIGNMENT RECEIVED. THIS RN TO BEDSIDE TO INFORM PT THAT SHE IS GOING TO BE TRANSFERED TO ROOM 2205. PT VERBALIZES UNDERSTANDING AND AGREEBLE. PT UP OOB TO BR TO VOID. PT ABLE TO VOID AT THIS TIME. PERICARE DONE. PT AMBULATES TO W/C FOR TRANSFER TO MED-SURG. TIME LAPSE IS APPROX 20 MINS.
--- NOTE | 2018-08-16 13:56 | NUR ---
Pt had surgery on 08/14/18 and has an incision on lower abdomen. Kacy are intact on both ends of incision and it is open in the center 7cm. The depth of the open site is 5cm. After removing packing and cleansing skin the wound was packed with one (1) 4x4 unfolded and moistened with saline. It was then covered with dry 4x4s and secured with tape. There was a small amount of bleeding when old packing was removed. There is no odor. Wound care will continue monitoring.
--- NOTE | 2018-08-16 14:20 | NUR ---
AFTER REPORT CALLED TO MOIRA LORENZO, PT TRANSFERED VIA W/C TO ROOM 2205. CHRISTOPHER FONSECA RN IN ROOM TO RECEIVE PT AT THIS TIME.
--- NOTE | 2018-08-16 14:27 | NUR ---
RECEIVED TO ROOM 2205 VIA . A/O X3. DRESSING TO LOWER ABDOMEN DRY AND INTACT. DENIES NEEDS. NO C/O PAIN.
--- NOTE | 2018-08-16 14:30 | NUR ---
PHARMACY CALLED PER THIS RN. SPOKE WITH MIGDALIA. REQUEST MADE THAT PT'S HEART MEDICATION PLEASE BE IN THE MED SURG PYXIS FOR THE 2100 DOSE. MIGDALIA ENSURES THIS RN THAT MED WILL BE AVAILABLE.
--- NOTE | 2018-08-16 15:21 | MORECARE ---
CASE MANAGEMENT DISCHARGE SUMMARY PATIENT: ALESSANDRA GLASGOW SHAYNE UNIT: [id number] ADM DATE: 08/16/18 AGE: 68 : 48 SEX: F ROOM/BED: D.2205 AUTHOR: PABLO,DOC PHYSICIAN: REFERRING PHYSICIAN: ARVIND ATKINS MD DATE OF SERVICE: 08/16/18 Discharge Plan Patient Name: ALESSANDRA GLASGOW Facility: [facility]:[place] : 1950 Planned Disposition: Anticipated Discharge Date: 08/17/18 Discharge Date: Expected LOS: 1 Initial Reviewer: [id number] Initial Review Date: 08/16/2018 Generated: 08/16/18 4:21 pm Comments DCP- Discharge Planning Updated by [email or web address]: Dior Torres on 08/16/18 2:[address] Patient Name: ALESSANDRA GLASGOW Admission Status: Elective Accout number: [id number] Admission Date: 08-16-2018 : 1950 Admission Diagnosis: Attending: Arvind Atkins Current LOS: 1 Anticipated DC Date: 08-17-2018 Planned Disposition: Primary Insurance: [employer]rock[employer] Discharge Planning Comments: CM MET WITH PATIENT ABOUT DC PLANNING/NEEDS. STATES WILL NEED HOME HEALTH FOR DRESSING CHANGES AND NURSING. SETH SIGNED FOR [facility] OR [facility]. CM WILL CHECK WITH PHARMACY AND SEE IF LOVENOX IS COVERED. CM WILL FOLLOW AND ASSIST NEEDED. Marklogic Developer: Dior Torres Appended by Dior Torres on 08/16/2018 15:18 CDT: CM CALLED PHARMACY AND THEY WOULDN'T GIVE ME A ZUNIGA FOR THE MEDICINE WITHOUT A PRESCRIPTION. I PRINTED OFF COUPON FROM [facility] TO HELP WITH MEDICINE IF ANY OUT OF POCKET. External Providers [facility] Next Contact Date: Service Request Date: Service Type: Resolution: Reviewer: Comments: Coverage Notice Reviewer: [id number] - Dior Torres Notice Issued Date-Time: 08/16/2018 15:18 Notice Type: Patient Choice Letter Notice Delivered To: Patient Relationship to Patient: Supportive Employment Case Manager Name: Delivery Method: HAND - Hand Delivered Jackie Days: Prior Verbal Notification: Recipient Understood Notice: Yes Recipient Signature: Yes Med Rec Note Co-signed by Attending: Coverage Notice Comment: SETH FOR [facility], CARE IV. Last DP export: 08/16/18 11:11 a Patient Name: ALESSANDRA GLASGOW Page [phone] at 1521 All edits/amendments must be made on the electronic document DICTATION DATE: 08/16/18 152 JUNIOR ENGINEER: JODIE 08/16/18 152 RPT#: [id number] DC DATE: STATUS: ADM IN [facility] [address] [place] [address] END OF REPORT
--- NOTE | 2018-08-16 15:31 | MORECARE ---
CASE MANAGEMENT DISCHARGE SUMMARY PATIENT: ALESSANDRA GLASGOW SHAYNE UNIT: [id number] ADM DATE: 08/16/18 AGE: 68 : 48 SEX: F ROOM/BED: D.2205 AUTHOR: PABLO,DOC PHYSICIAN: REFERRING PHYSICIAN: ARVIND ATKINS MD DATE OF SERVICE: 08/16/18 Discharge Plan Patient Name: ALESSANDRA GLASGOW Facility: [facility]:[place] : 1950 Planned Disposition: Anticipated Discharge Date: 08/17/18 Discharge Date: Expected LOS: 1 Initial Reviewer: [id number] Initial Review Date: 08/16/2018 Generated: 08/16/18 4:31 pm Comments DCP- Discharge Planning Updated by [id number]: Dior Torres on 08/16/18 2:[address] Patient Name: ALESSANDRA GLASGOW Admission Status: Elective Accout number: [id number] Admission Date: 08-16-2018 : 1950 Admission Diagnosis: Attending: Arvind Atkins Current LOS: 1 Anticipated DC Date: 08-17-2018 Planned Disposition: Primary Insurance: NOVASYSMCR Discharge Planning Comments: CM MET WITH PATIENT ABOUT DC PLANNING/NEEDS. STATES WILL NEED HOME HEALTH FOR DRESSING CHANGES AND NURSING. SETH SIGNED FOR [facility]. CM WILL CHECK WITH PHARMACY AND SEE IF LOVENOX IS COVERED. CM WILL FOLLOW AND ASSIST NEEDED. Mail Deliverer: Dior Torres Appended by Dior Torres on 08/16/2018 15:18 CDT: CM CALLED PHARMACY AND THEY WOULDN'T GIVE ME A ZUNIGA FOR THE MEDICINE WITHOUT A PRESCRIPTION. I PRINTED OFF COUPON FROM [facility] TO HELP WITH MEDICINE IF ANY OUT OF POCKET. Appended by Dior Torres on 08/16/2018 15:26 CDT: DOCUMENTS FAXED TO [facility] INFO AND COUPON GIVEN TO PATIENT TO HELP WITH LOVENOX IF INSURANCE DOESN'T COVER. Coverage Notice Reviewer: [id number] - Dior Torres Notice Issued Date-Time: 08/16/2018 15:18 Notice Type: Patient Choice Letter Notice Delivered To: Patient Relationship to Patient: Chef Teacher Name: Delivery Method: HAND - Hand Delivered Jackie Days: Prior Verbal Notification: Recipient Understood Notice: Yes Recipient Signature: Yes Med Rec Note Co-signed by Attending: Coverage Notice Comment: SETH FOR [facility], CARE IV. Last DP export: 08/16/18 2:21 p Patient Name: ALESSANDRA GLASGOW Page [phone] at 1531 All edits/amendments must be made on the electronic document DICTATION DATE: 08/16/181529 ATTENDING UROLOGIST: JODIE 08/16/181529 RPT#: [id number] DC DATE: STATUS: ADM IN [facility] [address] [place] [address] END OF REPORT
--- NOTE | 2018-08-16 16:21 | NUR ---
UP TO BR WITH ONE PERSON MIN ASSIST. VOIDED WITHOUT DIFFICULTY. AMBULATED 100 FEET IN HALLWAY WITH SBA. DID WELL WITH ACTIVITY. NO INCREASED PAIN.
[2018-08-16 16:44] VITALS: BP 136/55
--- NOTE | 2018-08-16 18:05 | NUR ---
UP TO BR WITH ONE PERSON MIN ASSIST. VOIDED WITHOUT DIFFICULTY. SUPPER SERVED IN ROOM PATIENT STATED SHE WAS HUNGRY. DRESSING TO ABDOMEN REENFORCED. NO CHANGES NOTED. DENIES NEEDS.
--- NOTE | 2018-08-16 19:40 | NUR ---
PT SITTING UP IN BED, NO SIGNS OF DISTRESS. ALERT AND ORIENTED. USING PILLOW TO SPLINT ABD WHEN COUGHING. DRESSING TO LOWER MID ABD CDI, 3 LAP SITES WITH BANDAIDS CDI. SCDS IN PLACE. DENIES PAIN AT THIS TIME. CL IN REACH, WILL CONT TO MONITOR
[2018-08-16 20:00] VITALS: BP 138/67
--- NOTE | 2018-08-16 21:00 | NUR ---
ASSISTED PT UP TO BATHROOM WITH MINIMAL ASSIST. PT STATES SHE ONLY HAS PAIN WHEN FIRST TRYING TO GET OUT OF BED AND THEN TRYING TO GET BACK IN BED, STATES NO PAIN OTHERWISE. NO VAGINAL BLEEDING. DRESSING CDI. SCDS PLACED BACK ON PT. PT REFUSED TYLENOL STATING SHE WAS NOT HAVING PAIN. CL IN REACH, WILL CONT TO MONITOR
[2018-08-17 00:51] VITALS: BP 127/61
[2018-08-17 04:00] VITALS: BP 127/61
--- NOTE | 2018-08-17 04:15 | NUR ---
PT UP TO BATHROOM WITH MINIMAL ASSIST. STATES NO PAIN EXCEPT WHEN FIRST EXTING BED. DRESSING TO ABD CDI. ASSISTED BACK INTO BED AFTER VOIDING. SCDS IN PLACE. CL IN REACH, WILL CONT TO MONITOR
--- NOTE | 2018-08-17 07:30 | NUR ---
UP TO BR WITH ONE PERSON MIN ASSIST. VOIDED CLEAR YELLOW URINE WITHOUT DIFFICULTY.
--- NOTE | 2018-08-17 07:52 | NUR ---
AWAKE AND ALERT. ORIENTED X3. NO C/O AT THIS TIME. LUNGS ARE CLEAR BILATERALLY, NO COUGH NOTED. SKIN IS INTACT WITHOUT REDNESS EXCEPT INCISION TO LOWER ABDOMEN WHICH HAS A DRY INTACT DRESSING IN PLACE. 3 INSERTION SITES NOTED TO ABDOMEN WELL. SL TO RIGHT HAND AND RIGHT AC ARE PATENT WITHOUT REDNESS AT INSERTION SITE. DENIES NEEDS.
[2018-08-17 09:39] VITALS: BP 152/75
[2018-08-17 09:58] VITALS: Ht 162.6 cm; Wt 120.2 kg
--- NOTE | 2018-08-17 10:00 | NUR ---
PATIENT HAVING URGENCY WITH MULTIPLE TRIPS TO BR THIS AM. WILL GET UA TO CHECK FOR UTI.
--- NOTE | 2018-08-17 10:53 | NUR ---
URINE SENT TO LAB FOR UA.
[2018-08-17 11:25] LABS: APPEARANCE CLEAR (CLEAR); BACTERIA FEW /hpf (NONE SEEN); BILIRUBIN NEGATIVE (NEGATIVE); COLOR YELLOW (YELLOW); EPITHELIAL CELLS 0-5 /hpf (0-5); GLUCOSE NEGATIVE (NEGATIVE); KETONE NEGATIVE (NEGATIVE); NITRITE NEGATIVE (NEGATIVE); PROTEIN NEGATIVE (NEGATIVE); RED CELLS - URINE 0-5 /hpf (0-5); SPECIFIC GRAVITY 1.005 (1.005-1.020); UROBILINOGEN NORMAL (NORMAL); WHITE CELLS - URINE OCC /hpf (0-5)
[2018-08-17 13:08] VITALS: BP 194/76
[2018-08-17] MEDS ORDERED: PERCOCET 7.5/321 TAB PO (14:40)
[2018-08-17] MEDS ORDERED: MOBIC7.5 MG PO (14:42)
[2018-08-17] MEDS ORDERED: MACROBID100 MG PO (14:43)
--- NOTE | 2018-08-17 16:18 | MORECARE ---
CASE MANAGEMENT DISCHARGE SUMMARY PATIENT: ALESSANDRA GLASGOW SHAYNE UNIT: [id number] ADM DATE: 08/16/18 AGE: 68 : 48 SEX: F ROOM/BED: D.2205 AUTHOR: PABLO,DOC PHYSICIAN: REFERRING PHYSICIAN: ARVIND ATKINS MD DATE OF SERVICE: 08/17/18 Discharge Plan Patient Name: ALESSANDRA GLASGOW Facility: [facility]:[place] : 1950 Planned Disposition: Anticipated Discharge Date: 08/17/18 Discharge Date: Expected LOS: 1 Initial Reviewer: [id number] Initial Review Date: 08/16/2018 Generated: 08/17/18 5:18 pm DCP- Discharge Planning Updated by [id number]: Dior Torres on 08/16/18 2:[address] Patient Name: ALESSANDRA GLASGOW Admission Status: Elective Accout number: [id number] Admission Date: 08-16-2018 : 1950 Admission Diagnosis: Attending: Arvind Atkins Current LOS: 1 Anticipated DC Date: 08-17-2018 Planned Disposition: Primary Insurance: NOVASYProteoMediXCR Discharge Planning Comments: CM MET WITH PATIENT ABOUT DC PLANNING/NEEDS. STATES WILL NEED HOME HEALTH FOR DRESSING CHANGES AND NURSING. SETH SIGNED FOR [facility] OR [facility]. CM WILL CHECK WITH PHARMACY AND SEE IF LOVENOX IS COVERED. CM WILL FOLLOW AND ASSIST NEEDED. Pooling Operator: Dior Torres Appended by Dior Torres on 08/16/2018 15:18 CDT: CM CALLED PHARMACY AND THEY WOULDN'T GIVE ME A ZUNIGA FOR THE MEDICINE WITHOUT A PRESCRIPTION. I PRINTED OFF COUPON FROM [facility] TO HELP WITH MEDICINE IF ANY OUT OF POCKET. Appended by Dior Torres on 08/16/2018 15:26 CDT: DOCUMENTS FAXED TO [facility] INFO AND COUPON GIVEN TO PATIENT TO HELP WITH LOVENOX IF INSURANCE DOESN'T COVER. Coverage Notice Reviewer: [id number] - Dior Torres Notice Issued Date-Time: 08/16/2018 15:18 Notice Type: Patient Choice Letter Notice Delivered To: Patient Relationship to Patient: Lettuce Trimmer Name: Delivery Method: HAND - Hand Delivered Jackie Days: Prior Verbal Notification: Recipient Understood Notice: Yes Recipient Signature: Yes Med Rec Note Co-signed by Attending: Coverage Notice Comment: SETH FOR [facility], CARE IV. Last DP export: 08/16/18 2:31 p Patient Name: ALESSANDRA GLASGOW Page [phone] at 1618 All edits/amendments must be made on the electronic document DICTATION DATE: 08/17/181617 JUDGE CLERK: JODIE 08/17/181617 RPT#: [id number] DC DATE: STATUS: ADM IN [facility] [address] [place] [address] END OF REPORT
--- NOTE | 2018-08-17 16:39 | MORECARE ---
CASE MANAGEMENT DISCHARGE SUMMARY PATIENT: ALESSANDRA GLASGOW SHAYNE UNIT: [id number] ADM DATE: 08/16/18 AGE: 68 : 46 SEX: F ROOM/BED: D.2205 AUTHOR: PABLO,DOC PHYSICIAN: REFERRING PHYSICIAN: ARVIND ATKINS MD DATE OF SERVICE: 08/17/18 Discharge Plan Patient Name: ALESSANDRA GLASGOW Facility: [facility]:[place] : 1950 Planned Disposition: Anticipated Discharge Date: 08/17/18 Discharge Date: Expected LOS: 1 Initial Reviewer: [id number] Initial Review Date: 08/16/2018 Generated: 08/17/18 5:39 pm Comments DCP- Discharge Planning Updated by [email or web address]: Claribel Carpio on 08/17/18 3:[address] Patient is discharging home today with [facility]. DCP- Discharge Planning Updated by [email or web address]: Dior Torres on 08/16/18 2:[address] Patient Name: ALESSANDRA GLASGOW Admission Status: Elective Accout number: [id number] Admission Date: 08-16-2018 : 1950 Admission Diagnosis: Attending: Arvind Atkins Current LOS: 1 Anticipated DC Date: 08-17-2018 Planned Disposition: Primary Insurance: NOVASYSMCR Discharge Planning Comments: CM MET WITH PATIENT ABOUT DC PLANNING/NEEDS. STATES WILL NEED HOME HEALTH FOR DRESSING CHANGES AND NURSING. SETH SIGNED FOR [facility] OR CARE IV. CM WILL CHECK WITH PHARMACY AND SEE IF LOVENOX IS COVERED. CM WILL FOLLOW AND ASSIST NEEDED. Water Resources Technical Officer: Dior Torres Appended by Dior Torres on 08/16/2018 15:18 CDT: CM CALLED PHARMACY AND THEY WOULDN'T GIVE ME A ZUNIGA FOR THE MEDICINE WITHOUT A PRESCRIPTION. I PRINTED OFF COUPON FROM [facility] TO HELP WITH MEDICINE IF ANY OUT OF POCKET. Appended by Dior Torres on 08/16/2018 15:26 CDT: DOCUMENTS FAXED TO [facility] INFO AND COUPON GIVEN TO PATIENT TO HELP WITH LOVENOX IF INSURANCE DOESN'T COVER. Coverage Notice Reviewer: [id number] - Dior Torres Notice Issued Date-Time: 08/16/2018 15:18 Notice Type: Patient Choice Letter Notice Delivered To: Patient Relationship to Patient: Bisque Tile Burner Name: Delivery Method: HAND - Hand Delivered Jackie Days: Prior Verbal Notification: Recipient Understood Notice: Yes Recipient Signature: Yes Med Rec Note Co-signed by Attending: Coverage Notice Comment: SETH FOR [facility], CARE IV. Last DP export: 08/17/18 3:18 p Patient Name: ALESSANDRA GLASGOW Page [phone] at 1639 All edits/amendments must be made on the electronic document DICTATION DATE: 08/17/181637 CAN PATCHER: JODIE 08/17/181637 RPT#: [id number] DC DATE: STATUS: ADM IN [facility] [address] [place] [address] END OF REPORT
--- NOTE | 2018-08-17 17:07 | NUR ---
DISCHARGED TO HOME AMBULATORY WITH SISTER. DISCHARGE INSTRUCTIONS GIVEN BOTH VERBALLY AND WRITTEN, ALL QUESTIONS ANSWERED. PATIENT VERBALIZED UNDERSTANDING OF SAME. PATIENT AND SISTER INSTRUCTED IN DRESSING CHANGE TO ABDOMEN. ALL QUESTIONS ANSWERED. SL TO RIGHT WRIST AND RIGHT AC D/C WITH CATHETER INTACT. ALL BELONGINGS WITH PATIENT. NEEDED PRESCRIPTIONS GIVEN TO PATIENT.
== END 2018-08-17 17:09 | disposition home health service (06) | DRG 983 ==
LOC: D.OPS 05:17 → D.PAN 07:30 → D.OPS 07:30 → D.PAN 08:30 → D.LD 10:47 → D.OPS 08-16 08:21 → D.LD 08-16 08:23 → D.MS 08-16 14:27
PROVIDERS: Obstetrics & Gynecology; ADMIT Obstetrics & Gynecology; ATTEND Obstetrics & Gynecology
PROC: 0UT90ZZ Resection of Uterus, Open Approach (ICD-10-PCS; principal; 2018-08-14 07:30)
PROC: 0UB20ZZ Excision of Bilateral Ovaries, Open Approach (ICD-10-PCS; 2018-08-14 07:30)
PROC: 0HC7XZZ Extirpation of Matter from Abdomen Skin, External Approach (ICD-10-PCS; 2018-08-16)
DX: L76.32 Postprocedural hematoma of skin and subcutaneous tissue following other procedure (principal); N95.0 Postmenopausal bleeding; N73.6 Female pelvic peritoneal adhesions (postinfective)